=== PATIENT | male | born 1950 | race Caucasian/White ===

== ENCOUNTER → 2017-02-20 | Outpatient (CLI) | payer MEDICARE, OTHER | END | disposition home or self-care (01) | LOC: CFH 09:46 | PROVIDERS: ATTEND Family Medicine | DX: I65.23 Occlusion and stenosis of bilateral carotid arteries (principal) | CPT/HCPCS: 93880 ==

== ENCOUNTER 2017-09-19 13:24 | Day surgery (SDC) | payer OTHER ==
[~2017-09-19] VITALS: Ht 188 cm; Wt 96.0 kg
[~2017-09-19 13:24] MED LIST: BUPIVACAINE/PF 0.5% ONE; EPINEPHRINE 1 MG/ML, 1ML ONE; MULT-516 PO; PRAV20TA2 PO; TAMS0.4C2 PO; TESTOSTERONE IM
[2017-09-19] MEDS ORDERED: LACTATED RINGERS 1,000 ML IV SCH (14:03)
[2017-09-19 14:22] VITALS: BP 142/90
[2017-09-19] MEDS ORDERED: FENTANYL PF 100 MCG/2ML ONE ×2 (15:09→15:37)
[2017-09-19] MEDS ORDERED: MIDAZOLAM 1 MG/ML, 2ML ONE (15:09)
[2017-09-19] MEDS ORDERED: DEXAMETHASONE 4 MG/ML, 1ML ONE ×2 (15:11)
[2017-09-19] MEDS ORDERED: ONDANSETRON 2MG/ML, 2ML ONE ×2 (15:11)
[2017-09-19] MEDS ORDERED: CEFAZOLIN 1,000 MG ONE ×2 (15:11)
[2017-09-19] MEDS ORDERED: ROCURONIUM 10 MG/ML,10ML ONE (15:12)
[2017-09-19] MEDS ORDERED: PROPOFOL 10 MG/ML, 20ML ONE ×2 (15:13→15:28)
[2017-09-19] MEDS ORDERED: PROMETHAZINE 25 MG/ML, 1ML IV PRN (15:30)
[2017-09-19] MEDS ORDERED: MIDAZOLAM 1 MG/ML, 2ML IV PRN (15:30)
[2017-09-19] MEDS ORDERED: ACETAMINOPHEN 325 MG TABLET PO PRN (15:30)
[2017-09-19] MEDS ORDERED: hydrALAzine 20 MG/ML, 1ML IV PRN (15:30)
[2017-09-19] MEDS ORDERED: LABETALOL 5MG/ML, 20ML IV PRN (15:30)
[2017-09-19] MEDS ORDERED: OXYcodone 5 MG/5 ML ORAL.SOL UDC PO PRN (15:30)
[2017-09-19] MEDS ORDERED: HYDROmorphone 1 MG/ML, 1ML IV PRN (15:30)
[2017-09-19] MEDS ORDERED: ONDANSETRON 2MG/ML, 2ML IVPush PRN (15:30)
[2017-09-19] MEDS ORDERED: FENTANYL PF 100 MCG/2ML IV PRN (15:30)
[2017-09-19] MEDS ORDERED: ALBUTEROL SULFATE 2.5 MG/3 ML NPPB PRN (15:30)
[2017-09-19] MEDS ORDERED: MEPERIDINE/PF 25MG/0.5ML IVPush PRN (15:30)
[2017-09-19] MEDS ORDERED: EPHEDRINE 50 MG/ML, 1ML ONE (15:54)
[2017-09-19] MEDS ORDERED: ACETAMINOPHEN 650 MG/20.3 ML UDC ONE (16:47)
[2017-09-19] MEDS ORDERED: OXYcodone 5 MG/5 ML ORAL.SOL UDC ONE (16:47)
== END 2017-09-19 18:25 ==
LOC: STAR 13:24
PROVIDERS: ATTEND Surgery
DX: C43.59 Malignant melanoma of other part of trunk (principal); M10.9 Gout, unspecified; Z88.0 Allergy status to penicillin; Z85.47 Personal history of malignant neoplasm of testis
CPT/HCPCS: 14000; 88307; 93005; J0171; J0690; J1100; J2250; J2405; J2704; J3010; J3490; J7120; 88342; G0461